=== PATIENT | male | born 1990 | race Caucasian/White ===

== ENCOUNTER 2016-10-30 09:21 | Inpatient (IN) | payer OTHER ==
--- NOTE | ~2016-10-30 | OP ---
Record Of Operation [facility] [address] [place]. [address] NAME: RAMONA HEREDIA : 89 STATUS : DIS Anjel PAT#: [id number] AGE: 25 ADM/REG DATE : 10/30/16 MR#: [id number] REPORT SERV DATE: 11/02/16 DICTATED BY: NELLIE VIGIL DATE: 10/30/16 REPORT STATUS : Draft TRANSCRIBED BY: MARIBEL DATE: 10/30/16 DATE OF PROCEDURE: 10/30/2016 OPERATION COMPLETED: Extraoral incision and drainage. PREOPERATIVE DIAGNOSIS: Right submasseteric space abscess. POSTOPERATIVE DIAGNOSIS: Right submasseteric space abscess. ANESTHESIA: General anesthesia via oral endotracheal intubation. SURGICAL PROCEDURE: The patient was taken to the operating room where successful general anesthesia was induced via oral endotracheal intubation. The patient was prepped and draped in the usual manner for an extraoral I and D procedure. We initiated the procedure by taking a 10 mL syringe with an 18-gauge needle and drawing purulent material from the abscess. This is to be sent for culture and sensitivity testing. We palpated the inferior aspect of the induration and made an approximate 3/4-inch incision through the skin with a #15 blade. Blunt dissection was carried into the right submasseteric space. There were copious amounts of purulent drainage pouring from the wound immediately. We further completed dissection up into the buccal space area where more purulent material was drained. We then tracked the hemostat bluntly up the superior aspect of the ramus of the mandible and again drained more purulent material. We then irrigated the wound and placed two half-inch Luz Elena drains in the wound. One was placed medially toward the buccal space and the other was placed more superiorly to the superior aspect of the loculation. The drains were sutured in place using a 2-0 Prolene suture. The wound was then dressed and the patient was awakened and extubated and taken to the recovery room in satisfactory condition. ESTER Nellie Vigil D.D.S. / [id number] CC: Conrado Shelton M.D.
--- NOTE | ~2016-10-30 | HP ---
History And Physical [facility] [address] [place]. [address] NAME: RAMONA MULLER : 89 STATUS : ADM Anjel PAT#: [id number] AGE: 25 ADM/REG DATE : 10/30/16 MR#: [id number] REPORT SERV DATE: 10/30/16 DICTATED BY: MARCIO MENON DATE: 10/30/16 REPORT STATUS : Draft TRANSCRIBED BY: MODL DATE: 10/30/16 DATE OF ADMISSION: 10/30/2016 EXAMINING PHYSICIAN: Marcio Menon M.D. REASON FOR ADMISSION: Right masseter abscess. HISTORY OF PRESENT ILLNESS: This is a 25-year-old white male, who had a tooth pulled in his hometown of [place], [place]. This was done on 10/16/2016. Indications for the extraction were not understood. He made a revisit with the same dentist on 10/20/2016. He is having some swelling and pain, and was placed on penicillin, and given ibuprofen for pain. He took the prescription ibuprofen as well as [id number] ibuprofen, ended up taking 7500 mg in 24 hours. He stop that, and went to primary care doctor in [place], who felt he had infection, gave him Augmentin on 10/22/2016. He came to work in [place] on 10/25/2016. On 10/27/2016, he went to the emergency room at an unknown hospital. He was found to have an abscess, and needle drainage was attempted apparently by the emergency room doctor at that time. He was off work on Wednesday and given Lortab and clindamycin. He has been taking the clindamycin 150 q.i.d. He had increasing swelling of his right face, took a picture of it, sent it to his girlfriend, who came to [place], [place] to pick him up, and took him to the emergency room at [facility]. CT scan of the face done at [facility] showed an abscess in the right masseter muscle of 3.6 x 5.6 x 5.7 cm. 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 No on-call Oral and Maxillofacial surgeons were obtainable at any other hospitals within the 100 mile radius of [facility] except from [facility] in [place]. The patient was transferred here for Dr. Esteban Burgess to see and drain the abscess. The Hospital Service was asked to admit the patient for Dr. Burgess. PAST MEDICAL HISTORY: No medications. No prior surgeries. No prior hospitalizations. SOCIAL HISTORY: The patient lives in [place], [place] with his girlfriend. They have been together for three years. No cigarettes or alcohol. 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 FAMILY HISTORY: One brother, three sisters, alive and well. Mother and father are both alive and well. REVIEW OF SYSTEMS: No chest pain or shortness of breath. No fever, chills, or night sweats. No melena, hematemesis, fits, seizures, convulsions, or unilateral weakness. The remainder of the review of systems is negative. PHYSICAL EXAMINATION: VITAL SIGNS: Temperature was 99.6, heart rate 100, respiratory rate 18, blood pressure 142/74, and oxygen saturation 98%. History And Physical [address] [address] NAME: RAMONA MULLER : 89 STATUS : ADM Anjel PAT#: [id number] AGE: 25 ADM/REG DATE : 10/30/16 MR#: [id number] REPORT SERV DATE: 10/30/16 DICTATED BY: MARCIO MENON DATE: 10/30/16 REPORT STATUS : Draft TRANSCRIBED BY: MODL DATE: 10/30/16 GENERAL: Obese white male, in no acute distress. Swollen right face. HEENT: Right eye is not visible because of the swelling of the periorbital tissues. The left eye, extraocular movements are intact. Sclerae are clear. Conjunctivae pink. NECK: No bruit without any JVD. No adenopathy palpable. CHEST: Clear. HEART: Regular S1, S2 without murmur, gallop, or click. ABDOMEN: Obese, protuberant, and nontender. EXTREMITIES: Have no edema. Distal pulses are intact, dorsalis pedis and posterior tibial. NEUROLOGIC: His gait is normal. Lineman is equal and symmetric. Coordination is intact. He has no tremor. Symmetric and equal neurologically bilaterally. LYMPHATICS: No adenopathy palpable. SKIN: There is swelling of the right face without redness or heat. There is no discrete tenderness over the right masseter muscle. LABORATORY DATA: White count was 15,500, hemoglobin 12.8, hematocrit 37.3, MCV was 85%, and platelet count 296,000. Blood cultures were obtained at [place]. CT scan showed a 3.8 x 5.6 x 5.7 right masseter muscle abscess with associated myositis and paranasal sinus disease. His sodium is 137, potassium 3.7, creatinine 0.87, with BUN of 6. Liver tests were normal. His globulin was 4.4. ASSESSMENT: 1. Right masseter muscle abscess. 2. Paranasal sinus inflammation. 3. Obesity. 4. Complication from tooth pulled on 10/16/2016. PLAN: IV Unasyn 3 g IV q.6 hours, and Dr. Esteban Burgess will see and drain the abscess. DB/MODL Marcio Menon M.D. / [id number] CC: Dejon Huizar D.D.SWilliam
--- NOTE | ~2016-10-30 | DS ---
Discharge Summary [place] [id number] [place]. [address] NAME: RAMONA HEREDIA : 89 STATUS : ADM Anjel PAT#: [id number] AGE: 25 ADM/REG DATE : 10/30/16 MR#: [id number] REPORT SERV DATE: 11/01/16 DICTATED BY: FRANCISCO SHELTON DATE: 11/01/16 REPORT STATUS : Draft TRANSCRIBED BY: MODL DATE: 11/01/16 ADMISSION DATE: 10/30/2016 DISCHARGE DATE: 11/01/2016 FINAL HOSPITAL DIAGNOSES: Oral abscess. CONSULTATIONS: Oral Maxillofacial Surgery. PROCEDURES: Incision and drainage. CURRENT PHYSICAL FINDINGS AND HPI: Please see dictated H and P by Dr. Christie. In brief, the patient is a 25-year-old male, who presented with above complaint. HOSPITAL COURSE: Initial vital signs were clinically stable. BP was 146/81, temperature was 98.6, and pulse was 83. He has had no fever during his hospital stay. Lab work showed a procalcitonin less than 0.05. A normal BNP and a white count of 16.8. The patient was accepted from outlying facility. Seen by Oral Maxillofacial Surgery, status post I and D drain, discharged today. The patient is tolerating p.o. He is feeling much better. He is afebrile. No other significant clinical medical problems. He is stable for discharge. Recommendations to follow up with oral surgeon and his normal local. Rx is written for clindamycin 450 one p.o. q.8 hours to complete another five days course and Lortab #15 q.4-6 p.r.n. TLF/MODL Francisco Shelton M.D. / [id number] CC: Francisco Shelton M.D.
[2016-10-30] MEDS ORDERED: *DENIES (09:39)
[2016-10-31 04:16] LABS: BASOPHILS 0 %; EOSINOPHILS 0 %; HEMATOCRIT 34.2 % (40.0-51.0); HEMOGLOBIN 11.5 g/dL (13.6-17.8); IMMATURE GRANULOCYTES 0.2 %; IMMATURE GRANULOCYTES ABSOLUTE 0.03 10/3/uL (0.0-0.11); LYMPHOCYTES 9.4 %; LYMPHOCYTES ABSOLUTE 1.59 10/3/uL (0.67-4.30); MEAN CORPUS HGB CONC 33.6 g/dL (32.0-36.0); MEAN CORPUSCULAR VOLUME 86.4 fL (80-100); MEAN PLATELET VOLUME 10.3 fL (9.2-13.0); MONOCYTES 3.7 %; MONOCYTES ABSOLUTE 0.62 10/3/uL (0.21-1.20); NEUTROPHILS 86.7 %; NEUTROPHILS ABSOLUTE 14.59 10/3/uL (2.02-8.40); PLATELET COUNT 315 10/3/uL (150-400); RBC DISTRIBUTION WIDTH 12.6 % (12.0-16.0); RED CELL COUNT 3.96 10/6/uL (4.7-6.1); WHITE BLOOD CELLS 16.8 10/3/uL (4.5-10.5)
[2016-10-31 04:19] LABS: MANUAL DIFF NO %
[2016-10-31 04:32] LABS: BUN (BLOOD UREA NITROGEN) 11 MG/DL (6-23); CALCIUM, SERUM 8.5 MG/DL (8.5-10.4); CHLORIDE, SERUM 106 MMOL/L (96-112); CO2 (CARBON DIOXIDE) 26 MMOL/L (24-34); CPK 227 U/L (0-200); GFR AFRICAN AMERICAN 145 ML/MIN (>=60); GFR NON AFRICAN AMERICAN 125 ML/MIN (>=60); GLUCOSE, SERUM 173 MG/DL (60-99); POTASSIUM, SERUM 4.3 MMOL/L (3.5-5.3); SODIUM, SERUM 141 MMOL/L (135-148)
[2016-10-31 05:51] LABS: PROCALCITONIN <0.05 ng/mL (<0.5)
[2016-11-01] MEDS ORDERED: NORCO1 TA1 PO (13:28)
[2016-11-01] MEDS ORDERED: CLEOCIN300 MG PO (13:31)
== END 2016-11-01 15:52 | disposition home or self-care (01) | DRG 580 ==
LOC: 4SO 09:21
PROVIDERS: Internal Medicine; Oral & Maxillofacial Surgery
PROC: 0W950ZX Drainage of Lower Jaw, Open Approach, Diagnostic (ICD-10-PCS; principal; 2016-10-30 14:45)
PROC: 0C94XZZ Drainage of Buccal Mucosa, External Approach (ICD-10-PCS; principal; 2016-10-30 14:45)
DX: L02.01 Cutaneous abscess of face (principal); K12.2 Cellulitis and abscess of mouth; K05.219 Aggressive periodontitis, localized, unspecified severity; J32.8 Other chronic sinusitis; E66.9 Obesity, unspecified; Z68.39 Body mass index [BMI] 39.0-39.9, adult
CPT/HCPCS: 80048; 82550; 84145; 85025; 87015; 87070; 87075; 87102; 87116; 87205; A9270-GY; J0295; J0330; J1170; J2250; J2270; J3010